=== PATIENT | female | born 1970 | race Asian ===

== ENCOUNTER 2017-12-27 11:46 | Day surgery (SDC) | payer OTHER ==
[2017-12-27] MEDS ORDERED: LIDOCAINE 2% (SDV) 5 ML INJ (14:00)
[2017-12-27] MEDS ORDERED: CEFAZOLIN 1 GM INJ (14:00)
[2017-12-27] MEDS ORDERED: SEVOFLURANE 15 MIN (14:00)
[2017-12-27] MEDS ORDERED: PROPOFOL 20 ML (14:06)
[2017-12-27] MEDS ORDERED: GLYCOPYRROLATE 0.4 MG INJ (14:08)
[2017-12-27] MEDS ORDERED: ROCURONIUM 50 MG INJ (14:08)
[2017-12-27] MEDS ORDERED: NEOSTIGMINE 3 MG/3 ML SYRINGE (14:08)
[2017-12-27] MEDS ORDERED: ONDANSETRON 4 MG INJ ×2 (14:33→15:50)
[2017-12-27] MEDS ORDERED: DEXAMETHASONE 4 MG/ML 1 ML INJ (14:33)
[2017-12-27] MEDS: BUPIVACAINE 0.25%/EPI (MDV) 50 ML VIAL INJ (14:58)
[2017-12-27] MEDS: LIDOCAINE 1% (STERILE-PAK) 30 ML INJ (14:59)
[2017-12-27] MEDS ORDERED: HYDROmorphONE 1 MG/5 ML IV SYRINGE IV (15:45)
[2017-12-27] MEDS ORDERED: MEPERIDINE 25 MG INJ (15:50)
[2017-12-27] MEDS: MEPERIDINE 25 MG INJ IV (15:57)
[2017-12-27] MEDS: ONDANSETRON 4 MG INJ IV (15:57)
[2017-12-27] MEDS: HYDROmorphONE 1 MG/5 ML IV SYRINGE IV ×3 (15:57→16:32)
[2017-12-27] MEDS ORDERED: KETOROLAC 30 MG INJ IV (16:00)
[2017-12-27] MEDS ORDERED: IBUPROFEN 600 MG TAB PO (16:00)
[2017-12-27] MEDS ORDERED: hydrALAzine 20 MG INJ IV (16:00)
[2017-12-27] MEDS ORDERED: OXYCODONE/ACETAMINOPHEN (5/325) TAB PO (16:00)
[2017-12-27] MEDS ORDERED: HYDROCODONE/APAP (5/325) TAB PO ×2 (16:00)
[2017-12-27] MEDS ORDERED: LABETALOL HCL 20MG INJ IV (16:00)
[2017-12-27] MEDS: CEFAZOLIN 2 GM/50 ML (PMX) 50 ML IVPB (16:04)
[2017-12-27] MEDS: KETOROLAC 30 MG INJ IV (16:07)
[2017-12-27] MEDS: FENTAnyl 50 MCG/ML VIAL IV (16:39)
[2017-12-27] MEDS: OXYCODONE/ACETAMINOPHEN (5/325) TAB PO (17:52)
== END 2017-12-27 18:40 | disposition home or self-care (01) ==
LOC: SDS 11:46
DX: K36 Other appendicitis (principal); K43.9 Ventral hernia without obstruction or gangrene
CPT/HCPCS: 44970; 88304